=== PATIENT | male | born 1955 | race Caucasian/White ===

== ENCOUNTER 2021-04-21 13:57 | Inpatient (IN) | payer OTHER ==
[~2021-04-21] VITALS: Ht 177.8 cm; Wt 130.0 kg
[2021-04-21 15:12] LABS: BASOPHILS ABSOLUTE AUTO 0.09 K/mm3 (0.00-0.23); BASOPHILS PERCENT AUTO 2 % (0-2); EOSINOPHILS ABSOLUTE AUTO 0.26 K/mm3 (0.00-0.68); EOSINOPHILS PERCENT AUTO 4 % (0-6); Hematocrit 39.7 % (37.0-53.0); IMMATURE GRAN ABSOLUTE AUTO 0.01 K/mm3 (0.00-0.10); IMMATURE GRAN PERCENT AUTO 0 % (0-1); LYMPHOCYTES ABSOLUTE AUTO 1.01 K/mm3 (0.84-5.20); LYMPHOCYTES PERCENT AUTO 17 % (21-46); MONOCYTES ABSOLUTE AUTO 0.81 K/mm3 (0.16-1.47); MONOCYTES PERCENT AUTO 14 % (4-13); Mean Corpuscular HGB 31.6 pg (26.0-34.0); Mean Corpuscular HGB Conc 32.7 g/dL (31.5-36.5); Mean Corpuscular Volume 96 fL (80-100); Mean Platelet Volume 10.7 fL (9.1-12.4); NEUTROPHILS ABSOLUTE AUTO 3.81 K/mm3 (1.96-9.15); NEUTROPHILS PERCENT AUTO 64 % (41-73); Platelet Count 185 K/mm3 (150-400); RDW Coefficient Variation 15.3 % (11.7-14.2); RDW Standard Deviation 53.9 fL (35.1-46.3); Red Blood Cell Count 4.12 M/mm3 (4.30-5.90); White Blood Cell Count 5.99 K/mm3 (4.00-11.30)
[2021-04-21 15:23] LABS: Alanine Aminotransfer (ALT/SGP 63 U/L (12-78); Albumin, Blood 2.5 g/dL (3.4-5.0); Albumin/Globulin Ratio 0.5 (0.8-1.8); Alk Phos 137 U/L (50-136); Anion Gap 5 mmol/L (6-16); Aspartate Aminotrans (AST/SGOT 119 U/L (12-37); Bilirubin, Total 2.5 mg/dL (0.1-1.0); Blood Urea Nitrogen 10 mg/dL (8-24); Bun/Creatinine Ratio 12.7 (12.0-20.0); CO2, Blood 28 mmol/L (21-32); Calcium, Blood 8.3 mg/dL (8.5-10.1); Chloride, Blood 109 mmol/L (98-108); Creatinine, Blood 0.79 mg/dL (0.60-1.20); Globulin, Blood 4.8 g/dL (2.2-4.0); Glomerular Filtration Rate >60 (60-); Glucose, Blood 88 mg/dL (70-99); Potassium, Blood 3.4 mmol/L (3.5-5.5); Sodium, Blood 142 mmol/L (136-145); Total Protein, Blood 7.3 g/dL (6.4-8.2)
[2021-04-21 19:22] LABS: International Normalized Ratio 1.36
[2021-04-22 02:18] LABS: Source, Urine Clean Catch
[2021-04-22 03:42] LABS: Adenovirus F 40/41 Not Detected (NOT DETECT); Astrovirus Not Detected (NOT DETECT); Campylobacter Sp Not Detected (NOT DETECT); Cryptosporidium Not Detected (NOT DETECT); Cyclospora Cayetanensis Not Detected (NOT DETECT); E. Coli O157 Not Detected (NOT DETECT); Entamoeba Histolytica Not Detected (NOT DETECT); Enteroaggregative E. coli-EAEC Not Detected (NOT DETECT); Enteropathogenic E. coli-EPEC Not Detected (NOT DETECT); Enterotoxigenic E. coli-ETEC Not Detected (NOT DETECT); Giardia Lamblia Not Detected (NOT DETECT); Norovirus GI/GII Not Detected (NOT DETECT); Plesiomonas Shigelloides Not Detected (NOT DETECT); Rotavirus A Not Detected (NOT DETECT); Salmonella Sp Not Detected (NOT DETECT); Sapovirus Not Detected (NOT DETECT); Shiga Toxin-prod E. coli-STEC Not Detected (NOT DETECT); Shigella/Enteroin E. coli-EIEC Not Detected (NOT DETECT); Vibrio Cholerae Not Detected (NOT DETECT); Vibrio Sp Not Detected (NOT DETECT); Yersinia Enterocolitica Not Detected (NOT DETECT)
[2021-04-22 03:43] LABS: Appearance, Urine Clear (Clear); Bilirubin, Urine 1+ (Neg); Blood, Urine 1+ (Neg); Color, Urine Amber (P-Yellow); Glucose Qualitative, Urine Neg (Neg); Ketones, Urine 2+ (Neg); Leukocyte Esterase, Urine 1+ (Neg); Nitrite, Urine Neg (Neg); Protein, Urine 1+ (Neg); Red Blood Cells, Urine 0-2 /hpf (0-2); Urobilinogen, Urine 2+ (Normal); White Blood Cells, Urine 0-2 /hpf (0-5)
[2021-04-22 03:44] LABS: Bacteria Few /hpf; Squamous Epithelial Cells Not Seen /hpf (Few)
[2021-04-22 05:15] LABS: BASOPHILS ABSOLUTE AUTO 0.09 K/mm3 (0.00-0.23); BASOPHILS PERCENT AUTO 2 % (0-2); EOSINOPHILS ABSOLUTE AUTO 0.18 K/mm3 (0.00-0.68); EOSINOPHILS PERCENT AUTO 4 % (0-6); Hematocrit 35.2 % (37.0-53.0); Hemoglobin 11.5 g/dL (13.5-17.5); IMMATURE GRAN ABSOLUTE AUTO 0.01 K/mm3 (0.00-0.10); IMMATURE GRAN PERCENT AUTO 0 % (0-1); LYMPHOCYTES ABSOLUTE AUTO 0.73 K/mm3 (0.84-5.20); LYMPHOCYTES PERCENT AUTO 15 % (21-46); MONOCYTES ABSOLUTE AUTO 0.63 K/mm3 (0.16-1.47); MONOCYTES PERCENT AUTO 13 % (4-13); Mean Corpuscular HGB 31.6 pg (26.0-34.0); Mean Corpuscular HGB Conc 32.7 g/dL (31.5-36.5); Mean Corpuscular Volume 97 fL (80-100); NEUTROPHILS ABSOLUTE AUTO 3.38 K/mm3 (1.96-9.15); NEUTROPHILS PERCENT AUTO 67 % (41-73); Platelet Count 150 K/mm3 (150-400); RDW Coefficient Variation 15.4 % (11.7-14.2); RDW Standard Deviation 54.8 fL (35.1-46.3); Red Blood Cell Count 3.64 M/mm3 (4.30-5.90); White Blood Cell Count 5.02 K/mm3 (4.00-11.30)
[2021-04-22 05:35] LABS: Alanine Aminotransfer (ALT/SGP 57 U/L (12-78); Albumin, Blood 2.5 g/dL (3.4-5.0); Albumin/Globulin Ratio 0.6 (0.8-1.8); Alk Phos 116 U/L (50-136); Anion Gap 5 mmol/L (6-16); Aspartate Aminotrans (AST/SGOT 107 U/L (12-37); Bilirubin, Total 2.5 mg/dL (0.1-1.0); Blood Urea Nitrogen 10 mg/dL (8-24); Bun/Creatinine Ratio 14.4 (12.0-20.0); CO2, Blood 27 mmol/L (21-32); Calcium, Blood 8.3 mg/dL (8.5-10.1); Chloride, Blood 112 mmol/L (98-108); Globulin, Blood 4.1 g/dL (2.2-4.0); Glomerular Filtration Rate >60 (60-); Glucose, Blood 83 mg/dL (70-99); Potassium, Blood 3.9 mmol/L (3.5-5.5); Sodium, Blood 144 mmol/L (136-145); Total Protein, Blood 6.6 g/dL (6.4-8.2)
--- NOTE | 2021-04-22 05:57 | NUR ---
SHIFT SUMMARY ADMITTED LAST NIGHT FOR ACUTE RESPIRATORY FAILURE R/T BILAT PLEURAL EFFUSIONS. AOX4. VSS. TELE NSR c PAC @92. DENIES PAIN, N/V. GETS SOB c ACTIVITY. SPO2 >90% ON 4L O2, DOESNT WEAR O2 @BASELINE. ON RA PT SPO2 IN 80'S. LS DIM T/O L LOBES & FINE CRACKLES HEARD RLL. HAS OCC PRODUCTIVE COUGH c SMALL AMOUNT YELLOW SPUTUM. PLAN TO HAVE THORACENTESIS TODAY. STOOL COLLECTED & CAME BACK C. DIFF +, IN ISOLATION. REPORTS LACK OF APPETITE, HAVING LIQUID STOOLS, ABD VERY DISTENDED & BLOATED FEELING. CALL LIGHT IN REACH, WCTM.
[2021-04-22 10:47] LABS: Color, Body Fluid Red (None-Yellow)
[2021-04-22 10:49] LABS: Appearance, Body Fluid Bloody (Clear)
[2021-04-22 11:07] LABS: Albumin, Body Fluid 1.1 g/dL; Lactate Dehydrogenase, Body Fl 154 U/L; Protein, Body Fluid 3.1 g/dL
[2021-04-22 11:30] LABS: Total Cell Count, Body Fluid 100
--- NOTE | 2021-04-22 16:45 | NUR ---
SHIFT SUMMARY PT IS A&O, PLEASANT AND CO-OP WITH CARE, THOUGH CAN BE STUBBORN AND SET IN HIS WAYS. INCONTINENT OF STOOL A COUPLE OF TIMES DURING THE NIGHT AND TODAY. PT REFUSED ANY ASSIST IN CLEANING UP. ALSO REFUSED A GOWN AND CLEAN, DISPOSABLE UNDERWEAR. SISTER LATER BROUGHT IN CLEAN CLOTHES. DR ROLAND AND TELECOMMUNICATIONS CONSULTANT IN TO SEE PT JUST BEFORE GOING DOWN TO HAVE THORACENTESIS. PT REPORTED THEY TOOK 1L OFF AND NEED TO TAKE OFF MORE. PT REPORTED THAT HE CAN BREATHE MUCH BETTER ALREADY. FLUID SENT TO LAB PER ORDERS. PT TO HAVE ABD US SOON, PER TECH. PT HAS BEEN INDEPENDENT TO [facility] AND TO [facility] NEEDED. DOES NOT WANT ANY ASSISTANCE AT ALL. PT WAS GOING TO GO HOME IMMEDIATELY AFTER THORA THIS AM, BUT ENDED UP AGREEING TO STAY FOR FURTHER TX. PT IN CONTACT ISO; C-DIFF +, RECEIVING FLAGYL. HAD DENIED FURTHER NEEDS. RESTING QUIETLY AT THIS TIME. NO C/O. CALL LT IN REACH.
--- NOTE | 2021-04-23 02:27 | NUR ---
LIME SLUDGE MIXER SUMMARY PATEINT IS AWAKE IA ORIENTED ON TAKING OVER. HE LODGEF NIL PROBLEM. HE REFUSED TO WEAR SCDS. HE STATED MAYBE IN THE MORNING. WILL CONTINUE TO MONITOR PATIENT.
[2021-04-23 04:29] LABS: Albumin, Blood 2.4 g/dL (3.4-5.0); Anion Gap 4 mmol/L (6-16); Blood Urea Nitrogen 12 mg/dL (8-24); CO2, Blood 28 mmol/L (21-32); Chloride, Blood 111 mmol/L (98-108); Creatinine, Blood 0.75 mg/dL (0.60-1.20); Glomerular Filtration Rate >60 (60-); Glucose, Blood 93 mg/dL (70-99); Phosphorus, Blood 3.5 mg/dL (2.5-4.9); Potassium, Blood 3.8 mmol/L (3.5-5.5); Sodium, Blood 143 mmol/L (136-145)
[2021-04-23 08:10] LABS: HBSAG SCREEN Negative (Negative); HEP A AB, IGM Negative (Negative); HEP B CORE AB, IGM Negative (Negative); HEP C VIRUS AB <0.1 (0.0-0.9)
--- NOTE | 2021-04-23 15:56 | NUR ---
SHIFT SUMMARY: PATIENT A/OX4, UP WITH SBA TO RESTROOM. CONTINUES TO HAVE LOOSE STOOLS WHICH ARE BROWN/BLOODY, PATIENT REPORTS HEMORRHOIDS. PATIENT ALSO REPORTED BLOOD IN URINE, BUT NO BLOOD SEEN IN URINE THIS SHIFT. C-DIFF POSITIVE, ORAL VANCO TO TREAT. VSS, ON 4LO2 TO MAINTAINS SATS. CT OF ABDOMEN DONE TODAY AND PARACENTESIS ON HOLD FOR NOW. PATIENT DENIES ANY PAIN. 20G IV TO L AC WNL AND SL. CALM AND COOPERATIVE WITH CARE. TOLERATING REGULAR DIET.
--- NOTE | 2021-04-24 05:11 | NUR ---
RAILROAD BRAKEMAN SUMMARY PT HAD A CALM SHIFT. VS STABLE. NO COMPLAINT LODGED.
[2021-04-24 05:34] LABS: Albumin, Blood 2.3 g/dL (3.4-5.0); Anion Gap 4 mmol/L (6-16); Blood Urea Nitrogen 10 mg/dL (8-24); Bun/Creatinine Ratio 14.7 (12.0-20.0); CO2, Blood 29 mmol/L (21-32); Calcium, Blood 8.2 mg/dL (8.5-10.1); Chloride, Blood 107 mmol/L (98-108); Creatinine, Blood 0.68 mg/dL (0.60-1.20); Glomerular Filtration Rate >60 (60-); Glucose, Blood 95 mg/dL (70-99); Phosphorus, Blood 3.7 mg/dL (2.5-4.9); Potassium, Blood 3.9 mmol/L (3.5-5.5); Sodium, Blood 140 mmol/L (136-145)
--- NOTE | 2021-04-24 16:43 | NUR ---
PATIENT A/OX4, UP INDEPENDENTLY IN ROOM. TELE D/C'D TODAY, PATIENT DENIES ANY CP. 3LO2 TO MAINTAIN SATS, SOB WITH EXERTION. THORACENTESIS DONE TODAY. 1.5L REMOVED. ONCOLOGY CONSULTED. SKIN INTACT. TOLERATING REGULAR DIET. C-DIFF POSITIVE, TREATING WITH ORAL VANCO. BM'S X2 THIS SHIFT. CONTINUES TO HAVE BLOOD IN STOOL FROM HEMORRHOIDS. CALM AND COOPERATIVE WITH CARE, ABLE TO MAKE NEEDS KNOWN.
--- NOTE | 2021-04-24 17:49 | NUR ---
Reviewed chart and discussed case with Primary RN Priyanka. Pt resting in bed upon arrival. Pt reports SOB has improved with oxygen. Engaged in therapeutic discussion regarding diagnosis and recommendations. Pt reports being twice but is single now. Pt has no children but does have siblings. Engaged in therapeutic discussion regarding hospice. Pt reports being familiar with hospice with his mother. Gentle education on hospice philosophy with V/U made by Pt. Discussed hospice agencies to choose from. Pt reports he will call his friend and determine who she recommends. Continued therapeutic listeing and answered questions. Instructed Pt to inform his primary RN or child care leader when hospice agency is decided. Pt expresses appreciation and reports no other concerns at this time. Palliative Care will remain available.
--- NOTE | 2021-04-25 06:37 | NUR ---
DENTOFACIAL ORTHOPEDICS DENTIST SUMMARY PATIENT HAD AN UNEVENTFUL NIGHT. DID NOT HAVE A FRESH COMPLAINT.
[2021-04-25] MEDS ORDERED: IPRAT-ALBUT 0.5-3 ML INH (12:01)
[2021-04-25] MEDS ORDERED: SPIR50 PO (12:02)
[2021-04-25] MEDS ORDERED: VANCOCIN HCL125 MG PO (12:03)
[2021-04-25] MEDS ORDERED: VISBIOME 112.51 EACH PO (12:06)
[2021-04-25] MEDS ORDERED: LASIX40 MG PO (12:07)
--- NOTE | 2021-04-25 17:30 | NUR ---
DISCHARGE SUMMARY PATIENT ALERT AND ORIENTED X4. NO ACUTE EVENTS THIS SHIFT. REMOVED PATIENTS IV, WNL. PATIENT WAS EDUCATED AND VERBALLY AGREED TO UNDERSTANDING TO DISCHARGE INSTRUCTIONS. PATIENT WAS WHEELED OUT BY COMMUNITY ORGANIZER WITH BROTHER IN LAW TO PERSONAL AUTOMOBILE.
== END 2021-04-25 17:20 | disposition hospice, home (50) | DRG 432 ==
LOC: ER 13:57 → MEDS 13:58
PROVIDERS: Emergency Medicine; Internal Medicine; ADMIT Internal Medicine
PROC: 0W9B3ZZ Drainage of Left Pleural Cavity, Percutaneous Approach (ICD-10-PCS; principal; 2021-04-24)
DX: K74.60 Unspecified cirrhosis of liver (principal); J96.01 Acute respiratory failure with hypoxia; I81 Portal vein thrombosis; C22.0 Liver cell carcinoma; Z68.41 Body mass index [BMI] 40.0-44.9, adult; A04.72 Enterocolitis due to Clostridium difficile, not specified as recurrent; R18.8 Other ascites; E87.6 Hypokalemia; G47.33 Obstructive sleep apnea (adult) (pediatric); Z20.822 Contact with and (suspected) exposure to COVID-19; E88.09 Other disorders of plasma-protein metabolism, not elsewhere classified; K64.8 Other hemorrhoids; K75.81 Nonalcoholic steatohepatitis (NASH); E66.01 Morbid (severe) obesity due to excess calories; J43.9 Emphysema, unspecified; Z87.891 Personal history of nicotine dependence; Z86.010 Personal history of colon polyps
CPT/HCPCS: 0097U; 32555; 36415; 49083; 71045; 71046; 71260; 74170; 76700; 80053; 80069; 80074; 81001; 82042; 82105; 83615; 83880; 84157; 85025; 85610; 85730; 86850; 86900; 86901; 87070; 87086; 87147; 87205; 87324; 88108; 88305; 89051; 93005; 93010; 93306; 94640; 94760; 94761; 94762; 96374; 99285-25; A9270; G0378; J1940; J7030; P9046; Q9967